=== PATIENT | female | born 1945 | race Caucasian/White ===

== ENCOUNTER 2021-12-18 10:32 | Outpatient (CLI) | payer MEDICARE, BC ==
[2021-12-18 23:47] LABS: SARS-CoV-2 PCR by NAA Not Detected (NotDetected)
== END 2021-12-18 10:33 | disposition home or self-care (01) ==
LOC: CSHLAB 10:32
PROVIDERS: ATTEND Specialist
DX: Z01.818 Encounter for other preprocedural examination (principal); Z20.822 Contact with and (suspected) exposure to COVID-19
CPT/HCPCS: 93005; 93010; U0003; U0005

== ENCOUNTER 2022-09-04 05:00 | Emergency (ER) | payer MEDICARE, BC ==
[2022-09-04 06:11] LABS: #Monocytes 0.3 10x3/uL (0.0-1.1); #Neutrophils 1.6 10x3/uL (1.5-8.4); %Eosinophils 0.5 % (0.0-6.0); %Monocytes 12.3 % (0.0-10.0); %Neutrophils 70.7 % (40.0-75.0); Hemoglobin 9.6 g/dL (12.0-15.5); Mean Corpuscular HGB CONC 32.7 g/dL (32.0-36.0); Mean Corpuscular Hemoglobin 26.2 pg (27.0-33.0); Mean Corpuscular Volume 80.3 fl (81.6-98.3); Mean Platelet Volume 10.7 fl (7.4-10.4); PTT 30.3 sec (22.0-33.0); Platelet Count 114 10x3/uL (150-450); Prothrombin Time 10.9 sec (9.5-12.1); RBC Distribution Width 17.1 % (11.5-14.5); Red Blood Cell (RBC) Count 3.66 10x6/uL (3.90-5.03); White Blood Cell (WBC) Count 2.2 10x3/uL (3.5-10.5)
[2022-09-04 06:16] LABS: ALT (SGPT) 10 U/L (8-55); AST (SGOT) 21 U/L (5-34); Albumin 3.5 g/dL (3.4-4.8); Alkaline Phosphatase 58 U/L (40-110); Anion Gap 12 mmol/L (10-20); BUN (Urea Nitrogen) 25 mg/dL (9.8-20.1); Bilirubin, Total 0.3 mg/dL (0.2-1.2); Calc. Creatinine Clearance 0 mL/min (70-130); Calcium 9.7 mg/dL (7.8-10.44); Carbon Dioxide 27 mmol/L (23-31); Chloride 102 mmol/L (98-107); Estimated GFR 41; Globulin 4.6 g/dL (2.4-3.5); Glucose 107 mg/dL (83-110); Potassium 3.9 mmol/L (3.5-5.1); Protein, Total 8.1 g/dL (5.8-8.1); Sodium 137 mmol/L (136-145)
[2022-09-04 06:48] LABS: Anisocytosis SLIGHT = 6-15 cells (100X) (0-5/hpf); Hypochromia SLIGHT = 6-15 cells (100X) (0-5/hpf)
[2022-09-04 06:49] LABS: Elliptocytes SLIGHT = 2-5 cells (100X) (0-1/hpf)
[2022-09-04 07:22] LABS: Bilirubin Neg (Negative); Blood, Urine Negative (Negative); Clarity Clear (Clear); Glucose, Urine (Dipstick) Normal (Negative); Ketone, Urine Negative (Negative); Leukocyte Negative (Negative); Nitrite Negative (Negative); Protein, Urine (Dipstick) Negative (Neg-Trace); Urobilinogen Normal mg/dL (Less than 2)
[2022-09-04] MEDS ORDERED: HYDROcodone/Acetaminophen 5/325 mg Tablet ONE (08:10)
== END 2022-09-04 09:57 | disposition home or self-care (01) ==
LOC: CSHERS 05:00
DX: M54.9 Dorsalgia, unspecified (principal); M25.551 Pain in right hip; E11.22 Type 2 diabetes mellitus with diabetic chronic kidney disease; I13.0 Hypertensive heart and chronic kidney disease with heart failure and stage 1 through stage 4 chronic kidney disease, or unspecified chronic kidney disease; N18.30 Chronic kidney disease, stage 3 unspecified; Z79.4 Long term (current) use of insulin; E03.9 Hypothyroidism, unspecified; Z79.899 Other long term (current) drug therapy; Z79.01 Long term (current) use of anticoagulants
CPT/HCPCS: 70450; 71045; 72125; 72128; 72131; 80053; 81003; 85025; 85610; 85730; 93005

== ENCOUNTER 2022-10-30 05:11 | Emergency (ER) | payer MEDICARE, BC ==
[2022-10-30 06:18] LABS: #Monocytes 0.3 10x3/uL (0.0-1.1); #Neutrophils 1.1 10x3/uL (1.5-8.4); %Basophils 0.5 % (0.0-2.0); %Eosinophils 1.4 % (0.0-6.0); %Lymphocytes 29.5 % (18.0-47.0); %Monocytes 14.5 % (0.0-10.0); %Neutrophils 53.6 % (40.0-75.0); Hemoglobin 9.7 g/dL (12.0-15.5); Mean Corpuscular HGB CONC 33.1 g/dL (32.0-36.0); Mean Corpuscular Volume 81.6 fl (81.6-98.3); Mean Platelet Volume 10.9 fl (7.4-10.4); Platelet Count 113 10x3/uL (150-450); RBC Distribution Width 17.4 % (11.5-14.5); Red Blood Cell (RBC) Count 3.59 10x6/uL (3.90-5.03); White Blood Cell (WBC) Count 2.1 10x3/uL (3.5-10.5)
[2022-10-30 07:00] LABS: ALT (SGPT) 11 U/L (8-55); AST (SGOT) 22 U/L (5-34); Albumin 3.4 g/dL (3.4-4.8); Alkaline Phosphatase 57 U/L (40-110); Anion Gap 13 mmol/L (10-20); BUN (Urea Nitrogen) 20 mg/dL (9.8-20.1); Bilirubin, Total 0.3 mg/dL (0.2-1.2); Calc. Creatinine Clearance 0 mL/min (70-130); Calcium 9.1 mg/dL (7.8-10.44); Carbon Dioxide 26 mmol/L (23-31); Chloride 102 mmol/L (98-107); Estimated GFR 36; Globulin 5.3 g/dL (2.4-3.5); Glucose 104 mg/dL (83-110); Potassium 4.1 mmol/L (3.5-5.1); Protein, Total 8.7 g/dL (5.8-8.1); Sodium 137 mmol/L (136-145)
[2022-10-30 07:17] LABS: PTT 31.9 sec (22.0-33.0); Prothrombin Time 11.3 sec (9.5-12.1)
[2022-10-30] MEDS ORDERED: Acetaminophen 500 MG TAB ONE (07:31)
[2022-10-30] MEDS ORDERED: Morphine 4 MG/ML VIAL ONE (10:29)
== END 2022-10-30 19:15 ==
LOC: CSHERS 05:11
DX: S60.222A Contusion of left hand, initial encounter (principal); S60.221A Contusion of right hand, initial encounter; S70.12XA Contusion of left thigh, initial encounter; M25.562 Pain in left knee; M19.012 Primary osteoarthritis, left shoulder; G70.00 Myasthenia gravis without (acute) exacerbation; D61.818 Other pancytopenia; E11.22 Type 2 diabetes mellitus with diabetic chronic kidney disease; I13.0 Hypertensive heart and chronic kidney disease with heart failure and stage 1 through stage 4 chronic kidney disease, or unspecified chronic kidney disease; N18.30 Chronic kidney disease, stage 3 unspecified; E03.9 Hypothyroidism, unspecified; E78.5 Hyperlipidemia, unspecified; Z79.899 Other long term (current) drug therapy; Z79.82 Long term (current) use of aspirin; Z79.01 Long term (current) use of anticoagulants; Z79.4 Long term (current) use of insulin; W18.39XA Other fall on same level, initial encounter
CPT/HCPCS: 36416; 70450; 72125; 80053; 85025; 85610; 85730; 93005; 96374; J2270

== ENCOUNTER 2023-12-11 08:26 | Emergency (ER) | payer MEDICARE, BC ==
[2023-12-11 09:50] LABS: #Monocytes 0.4 10x3/uL (0.0-1.1); #Neutrophils 1.5 10x3/uL (1.5-8.4); %Lymphocytes 19.7 % (18.0-47.0); %Monocytes 18.4 % (0.0-10.0); %Neutrophils 61.5 % (40.0-75.0); Hematocrit 29.7 % (34.9-44.5); Mean Corpuscular HGB CONC 33.7 g/dL (32.0-36.0); Mean Corpuscular Hemoglobin 29.9 pg (27.0-33.0); Mean Corpuscular Volume 88.7 fl (81.6-98.3); RBC Distribution Width 15.1 % (11.5-14.5); Red Blood Cell (RBC) Count 3.35 10x6/uL (3.90-5.03); White Blood Cell (WBC) Count 2.4 10x3/uL (3.5-10.5)
[2023-12-11 09:51] LABS: Mean Platelet Volume 11.6 fl (7.4-10.4); Platelet Count 73 10x3/uL (150-450)
[2023-12-11 09:56] LABS: INR-International Normal Ratio 1.1; PTT 32.2 sec (22.0-33.0); Prothrombin Time 12.2 sec (9.5-12.1)
[2023-12-11 10:04] LABS: ALT (SGPT) 15 U/L (8-55); AST (SGOT) 26 U/L (5-34); Albumin 3.1 g/dL (3.4-4.8); Alkaline Phosphatase 65 U/L (40-110); Anion Gap 14 mmol/L (10-20); BUN (Urea Nitrogen) 19 mg/dL (9.8-20.1); Bilirubin, Total 0.3 mg/dL (0.2-1.2); Calc. Creatinine Clearance 0 mL/min (70-130); Calcium 8.6 mg/dL (7.8-10.44); Carbon Dioxide 22 mmol/L (23-31); Chloride 104 mmol/L (98-107); Estimated GFR 35; Globulin 4.8 g/dL (2.4-3.5); Glucose 112 mg/dL (83-110); Magnesium 1.1 mg/dL (1.6-2.6); Potassium 3.8 mmol/L (3.5-5.1); Protein, Total 7.9 g/dL (5.8-8.1); Sodium 136 mmol/L (136-145)
[2023-12-11 10:10] LABS: Troponin I Less than 0.010 ng/mL (< 0.028)
[2023-12-11 10:24] LABS: Bilirubin Neg (Negative); Blood, Urine Negative (Negative); Clarity Clear (Clear); Glucose, Urine (Dipstick) Normal (Negative); Ketone, Urine Negative (Negative); Leukocyte Negative (Negative); Nitrite Negative (Negative); Protein, Urine (Dipstick) 15 mg/dl (Neg-Trace); Urobilinogen Normal mg/dL (Less than 2); pH, Urine 6.5 (5.0-9.0)
[2023-12-11 10:47] LABS: Anisocytosis SLIGHT = 6-15 cells (100X) (0-5/hpf); Platelet Adequacy Comment Appears Decreased
[2023-12-11 10:50] LABS: Bacteria/HPF Rare-Few HPF (None Seen); CAUTI Indications for Culture Alt mental st,lethar; RBC/HPF None Seen HPF (0-3); Squamous Epithelial None Seen HPF (0-3); Urine Culture Reflex No No; WBC/HPF None Seen HPF (0-3)
[2023-12-11] MEDS ORDERED: Magnesium 2 GM/50 ML BAG (IN WATER) ONE (10:57)
[2023-12-11] MEDS ORDERED: Acetaminophen 500 MG TAB ONE (11:54)
== END 2023-12-11 12:23 | disposition home or self-care (01) ==
LOC: CSHERS 08:26
DX: S80.01XA Contusion of right knee, initial encounter (principal); E83.42 Hypomagnesemia; M54.2 Cervicalgia; I48.91 Unspecified atrial fibrillation; I11.0 Hypertensive heart disease with heart failure; I50.9 Heart failure, unspecified; E11.9 Type 2 diabetes mellitus without complications; I13.0 Hypertensive heart and chronic kidney disease with heart failure and stage 1 through stage 4 chronic kidney disease, or unspecified chronic kidney disease; E11.22 Type 2 diabetes mellitus with diabetic chronic kidney disease; N18.9 Chronic kidney disease, unspecified; Z79.01 Long term (current) use of anticoagulants; W22.8XXA Striking against or struck by other objects, initial encounter
CPT/HCPCS: 36415; 70450; 71045; 71260; 72125; 74177; 80053; 81001; 83605; 83735; 83880; 84484; 85025; 85610; 85730; 93005; 96365; J3475